=== PATIENT | male | born 1985 ===

== ENCOUNTER 2021-06-09 02:36 | Emergency (ER) | payer SELFPAY ==
[~2021-06-09] VITALS: Ht 167.6 cm; Wt 68.0 kg
[2021-06-09 02:48] VITALS: BP 152/98
== END 2021-06-09 07:41 | disposition left against medical advice (07) ==
LOC: ER 02:36
DX: R10.9 Unspecified abdominal pain (principal); Z53.21 Procedure and treatment not carried out due to patient leaving prior to being seen by health care provider

== ENCOUNTER 2023-03-07 06:43 | Emergency (ER) | payer MEDICAID, OTHER ==
[~2023-03-07] VITALS: Ht 165.1 cm; Wt 62.2 kg
[2023-03-07 07:29] VITALS: BP 107/57; PULSE 87; RESP 20; TEMP 98.4; O2SAT 97
[2023-03-07] MEDS ORDERED: PROM1SOL4 PO (07:40)
[2023-03-07] MEDS ORDERED: AZIT-81 PO (07:40)
== END 2023-03-07 07:46 | disposition home or self-care (01) ==
LOC: ER 06:43
DX: J20.9 Acute bronchitis, unspecified (principal); R05.9 Cough, unspecified; F17.210 Nicotine dependence, cigarettes, uncomplicated